=== PATIENT | female | born 1995 | race American Indian/Alaskan Native ===

== ENCOUNTER 2019-06-08 00:34 | Outpatient (CLI) | payer MEDICAID ==
[2019-06-08 00:46] VITALS: BP 125/72
== END 2019-06-08 02:36 | disposition home or self-care (01) ==
LOC: TRG 00:34
PROVIDERS: ATTEND Obstetrics & Gynecology
DX: O47.03 False labor before 37 completed weeks of gestation, third trimester (principal); Z3A.36 36 weeks gestation of pregnancy
CPT/HCPCS: 59025

== ENCOUNTER 2019-06-12 22:44 | Outpatient (CLI) | payer MEDICAID | END 2019-06-13 00:06 | disposition home or self-care (01) | LOC: TRG 22:44 | PROVIDERS: ATTEND Obstetrics & Gynecology | DX: O42.92 Full-term premature rupture of membranes, unspecified as to length of time between rupture and onset of labor (principal); Z3A.37 37 weeks gestation of pregnancy | CPT/HCPCS: 59025 ==

== ENCOUNTER 2019-06-17 20:20 | Outpatient (CLI) | payer MEDICAID ==
[2019-06-17 20:52] VITALS: BP 128/81
[2019-06-17 21:13] LABS: Bilirubin,Urine NEG (Negative); Blood,Urine NEG (Negative); Color,Urine Yellow (Yellow); Mucus,Urine FEW /HPF; Protein,Urine <15 mg/dL mg/dL (Negative); Urobilinogen,Urine < 2.0 mg/dL (<2.0)
== END 2019-06-17 21:26 | disposition home or self-care (01) ==
LOC: TRG 20:20
PROVIDERS: ATTEND Obstetrics & Gynecology
DX: O47.1 False labor at or after 37 completed weeks of gestation (principal); Z3A.37 37 weeks gestation of pregnancy
CPT/HCPCS: 81001

== ENCOUNTER 2019-06-26 18:25 | Inpatient (IN) | payer MEDICAID ==
[2019-06-26] MEDS ORDERED: AMPICILLIN/NS 2 GM/100 ML 2 GM/100 ML BAG IV ONE ×2 (19:47→19:51)
[2019-06-26] MEDS ORDERED: LACTATED RINGERS 1,000 ML IV SCH (20:00)
[2019-06-26] MEDS ORDERED: fentaNYL 100 MCG/2 ML INJ IV PRN (20:27)
[2019-06-26 20:44] LABS: Hematocrit 41.8 % (30.3-42.9); Hemoglobin 13.7 gm/dl (10.1-14.3); Mean Corpuscular HGB Conc 33 % (30-34); Mean Corpuscular Volume 82 fl (79-97); Platelet Count 272 K/mm3 (140-440); Red Blood Count 5.13 M/mm3 (3.65-5.03); Red Cell Distribution Width 13.4 % (13.2-15.2)
[2019-06-26] MEDS ORDERED: OXYTOCIN 20 UNIT/1000ML DRIP 20 UNITS/1,000 ML BAG IV SCH (21:00)
--- NOTE | 2019-06-26 21:32 | History and Physical Report ---
History of Present Illness Date of examination: 06/26/19 Date of admission: 06/26/19 Chief complaint: I'm in labor History of present illness: Pt is a 23 year old who presents at 39+ weeks in active labor with an EDC of 07/02/19. Pt received care at [facility] [place]. however presented to [facility] this evening. Per patient she is GBS positive. records are not available for review, however the hospital has been contacted in attempt to attain them. per the patient she has had an uncomplicated course. Past History Past Medical History: no pertinent history - Obstetrical History Expected Date of Delivery: 07/02/19 Actual Gestation: 39 Week(s) 1 Day(s) : 3 Para: 1 Medications and Allergies Allergies Allergy/AdvReac Type Severity Reaction Status Date / Time No Known Allergies Allergy Verified 06/09/18 10:26 Home Medications Medication Instructions Recorded Confirmed Last Taken Type Acyclovir [Zovirax Tab] 1 mg PO DAILY 06/17/19 06/17/19 1 Day Ago History ~06/25/19 1 mg Active Meds: Active Medications Fentanyl (Sublimaze) 100 mcg IV ONCE PRN PRN Reason: Labor Pain Last Admin: 06/26/19 20:34 Dose: 100 mcg Documented by: Lactated Ringer's (Lactated Ringers) 1,000 mls @ 125 mls/hr IV DIRECT ARNIE Last Admin: 06/26/19 19:56 Dose: 125 mls/hr Documented by: Oxytocin/Sodium Chloride (Pitocin/Ns 20 Unit/1000ml Drip) 20 units in 1,000 mls @ 125 mls/hr IV DIRECT ARNIE Ampicillin Sodium (Ampicillin/Ns 1 Gm/50 Ml) 1 gm in 50 mls @ 100 mls/hr IV Q4HR ARNIE; Protocol Review of Systems All systems: negative Genitourinary: pelvic pain, contractions - Vital Signs Vital signs: Vital Signs Temp Pulse Resp BP Pulse Ox 97.8 F 88 18 130/87 100 06/26/19 20:21 06/26/19 20:21 06/26/19 20:21 06/26/19 20:21 06/26/19 20:21 Temp Pulse Resp BP Pulse Ox 97.8 F 87 18 130/87 99 06/26/19 20:21 06/26/19 21:24 06/26/19 20:34 06/26/19 20:23 06/26/19 21:24 - Physical Exam Breasts: Cardiovascular: Regular rate, Normal S1, Normal S2 Lungs: Positive: Clear to auscultation, Normal air movement Abdomen: Positive: normal appearance, soft, normal bowel sounds. Negative: distention, tenderness Vulva: both: normal Vagina: Positive: normal moisture. Negative: discharge Cervix: Negative: lesion, discharge Uterus: Positive: normal size, normal contour Adnexa: both: normal Anus/Rectum: Positive: normal perianal skin, heme negative. Negative: rectal mass, hemorrhoids Extremities: Deep Tendon Reflex Grade: Normal +2 - Obstetrical Cervical Dilatation: 5 Cervical Effacement Percentage: 70 station: -2 Uterine Contraction Pattern: Regular Uterine Tone Measurement Phase: Contraction Uterine Contraction Intensity: Moderate Results Result Diagrams: 06/26/19 19:43 Abnormal lab results 06/26/19 Range/Units 19:43 RBC 5.13 H (3.65-5.03) M/mm3 MCH 27 L (28-32) pg All other labs normal. Assessment and Plan IUP at 39.1 weeks in active labor. Patient states that her course has been uncomplicated. Will admit for labor management. Treat for GBS unknown. Anticipate .
--- NOTE | 2019-06-26 22:18 | Procedure Note ---
OB Delivery Note - Delivery Date of Delivery: 06/26/19 Surgeon: CHIO EPSTEIN Estimated blood loss: 200cc - Vaginal Delivery presentation: vertex Delivery position: OA Intrapartum events: none Delivery induction: none Delivery augmentation: rupture of membranes Delivery monitor: external FHT, external uterine Route of delivery: Indicators for instrumentation: nonreassuring FHR tracing Delivery placenta: spontaneous Delivery cord: 3 umbilical vessels Episiotomy: none Delivery laceration: none Anesthesia: none Delivery comments: Viable female delivered over intact perineum without nuchal at 2152. Infant placed on maternal abdomen. Cord clamped and cut when done pulsating. Placenta delivered spontaneously and intact. No lacerations. Pt tolerated procedure well. Excellent hemostasis - Infant A at 1 minute: 8 at 5 minutes: 9 Gender: Female
[2019-06-26] MEDS ORDERED: METHYLERGONOVINE MALEATE 0.2 MG/ML VIAL IM ONE (22:38)
[2019-06-26] MEDS ORDERED: AMPICILLIN/NS 1 GM/50 ML 1 GM/50 ML BAG IV SCH (23:56)
[2019-06-27] MEDS ORDERED: ACETAMINOPHEN 325 MG TAB PO PRN (00:26)
[2019-06-27] MEDS ORDERED: ONDANSETRON 4 MG/2 ML INJ IV PRN (00:26)
[2019-06-27] MEDS ORDERED: WITCH HAZEL/ GLYCERIN PAD TP PRN (00:26)
[2019-06-27] MEDS ORDERED: diphenhydrAMINE 25 MG CAP PO PRN (00:26)
[2019-06-27] MEDS ORDERED: PROMETHAZINE 25 MG TAB PO PRN (00:26)
[2019-06-27] MEDS ORDERED: PROMETHAZINE 25 MG RECT SUPP PR PRN (00:26)
[2019-06-27] MEDS ORDERED: LANOLIN/ZINC/DIMETHICONE (LANSINOH) 7 GM TP PRN (00:26)
[2019-06-27] MEDS ORDERED: HYDROcodone/ACETAMINOPHEN 5-325 MG TAB PO PRN (00:26)
[2019-06-27] MEDS ORDERED: MAGNESIUM HYDROXIDE (MOM) ORAL LIQD UDC PO PRN (00:26)
[2019-06-27] MEDS: IBUPROFEN 600 MG TAB PO SCH ×3 (00:42→18:34)
[2019-06-27 10:44] LABS: Hematocrit 36.4 % (30.3-42.9)
[2019-06-27] MEDS: DOCUSATE SODIUM 100 MG CAP PO SCH (18:32)
[2019-06-27] MEDS: PRENATAL VIT27-FE FUMARATE-FOLIC ACID VIT TAB PO SCH (18:32)
[2019-06-28] MEDS: DOCUSATE SODIUM 100 MG CAP PO SCH ×2 (00:04→11:04)
[2019-06-28] MEDS: IBUPROFEN 600 MG TAB PO SCH ×2 (00:04→06:22)
[2019-06-28] MEDS: PRENATAL VIT27-FE FUMARATE-FOLIC ACID VIT TAB PO SCH (11:03)
--- NOTE | 2019-06-28 18:31 | Progress Note ---
Assessment and Plan PPD 2 S/P . SHE IS DOING WELL. PT HAS TO STAY 48 HOURS FOR GBS STATUS WITH NOT ADEQUATE TREATMENT. PLAN FOR DISCHARGE ON TOMORROW Subjective - Subjective Date of service: 06/28/19 Interval history: Pt is a 23 year old who presents at 39+ weeks in active labor with an EDC of 07/02/19. Pt received care at [facility] [place]. however presented to [facility] this evening. Per patient she is GBS positive. records are not available for review, however the hospital has been contacted in attempt to attain them. per the patient she has had an uncomplicated course. Patient reports: appetite normal, voiding normally, pain well controlled, ambulating normally [place]: doing well Objective - Vital Signs Latest vital signs: Vital Signs Temp Pulse Resp BP Pulse Ox 06/28/19 08:03 97.9 F 66 20 104/64 97 06/28/19 02:27 97.9 F 60 20 107/61 98 Intake and Output 06/28/19 06/28/19 06/28/19 06:59 14:59 22:59 Intake Total 240 480 Balance 240 480 Intake: Oral 240 480 Other: Total, Intake Amount 240 240 # Voids Void 1 1 - Exam Cardiovascular: Present: Regular rate, Normal S1, Normal S2 Lungs: Present: Clear to auscultation, Normal air movement Abdomen: Present: normal appearance, soft Extremities: Present: normal Deep Tendon Reflex Grade: Normal +2
--- NOTE | 2019-06-28 18:34 | Discharge Summary ---
Providers - Providers Date of Admission: 06/26/19 22:15 Date of discharge: 06/28/19 Attending physician: CHIO EPSTEIN Primary care physician: CHIO EPSTEIN Hospitalization Reason for admission: active labor Delivery: Laceration: none complications: none Discharge diagnosis: IUP at term delivered [place] baby: female Hospital course: UNREMARKABLE Condition at discharge: Good Disposition: DC-01 TO HOME OR SELFCARE Plan - Discharge Medications Prescriptions: Ibuprofen [Motrin] 800 mg PO Q8HR PRN #40 tablet PRN Reason: Pain, Moderate (4-6) - Provider Discharge Summary Activity: routine, no sex for 6 weeks, no heavy lifting 4 weeks, no strenuous exercise Diet: routine Instructions: routine Additional instructions: [] Smoking cessation referral if applicable(refer to patient education folder for contact #) [] Refer to [facility] Booklet Call your doctor immediately for: * Fever > 100.5 * Heavy vaginal bleeding ( >1 pad per hour) * Severe persistent headache * Shortness of breath * Reddened, hot, painful area to leg or breast * Drainage or odor from incision. * Keep incision clean and dry at all times and follow doctor's instructions regarding bathing/showering - Follow up plan Follow up: CHIO EPSTEIN MD [Primary Care Provider] - 6 Weeks
[2019-06-29] MEDS: IBUPROFEN 600 MG TAB PO SCH (06:03)
[2019-06-29 17:03] VITALS: BP 115/78
== END 2019-06-29 16:30 | disposition home or self-care (01) | DRG 775 ==
LOC: TRG 18:25 → LD 18:25 → TRG 18:26 → LD 22:15 → OB 23:40
PROVIDERS: ADMIT Obstetrics & Gynecology; ATTEND Obstetrics & Gynecology
PROC: 10E0XZZ Delivery of Products of Conception, External Approach (ICD-10-PCS; principal; 2019-06-26)
DX: O76 Abnormality in fetal heart rate and rhythm complicating labor and delivery (principal); Z3A.39 39 weeks gestation of pregnancy; Z37.0 Single live birth
CPT/HCPCS: 36415; 85014; 85018; 85027; 86850; 86900; 86901; G0378; A6250; J0290; J2590; J3010; J7120